=== PATIENT | female | born 2000 | race Caucasian/White ===

== ENCOUNTER 2020-09-18 08:29 | Outpatient (REF) | payer OTHER, SELFPAY ==
[2020-09-18 10:30] LABS: Baso%MD 0.7 %; Eos%MD 1.4 %; Hematocrit 43.4 % (37-47); Hemoglobin 14.6 g/dl (12.0-16.0); IG%MD 0.2 %; Lymph%MD 39.2 %; Mean Corpuscular HGB Conc 33.6 g/dl (31.0-35.0); Mean Corpuscular Hemoglobin 30.7 pg (27.0-33.0); Mean Corpuscular Volume 91.4 fL (80-98); Mean Platelet Volume 10.2 fL (9.4-12.3); Mono%MD 8.3 %; Neut%MD 50.2 %; Platelet Count 227 X10*3/uL (160-400); Red Blood Count 4.75 X10*6/uL (4.20-5.50); Red Cell Distribution Width 11.7 % (11.0-16.0); White Blood Count 4.2 X10*3/uL (4.8-10.8)
[2020-09-18 11:10] LABS: TSH reflex Free T4 1.42 mIU/mL (0.32-4.0)
[2020-09-18 11:21] LABS: Erythrocyte Sedimentation Rate 2 MM/HR (0-20)
[2020-09-18 14:18] LABS: Eosinophils Percent Manual 1 % (0-4); Lymphocytes Absolute Manual 1.6 X10*3/uL (0.6-4.8); Lymphocytes Percent Manual 38 % (20-40); Monocytes Absolute Manual 0.3 X10*3/uL (0.0-1.2); Monocytes Percent Manual 6 % (2-11); Neutrophils Percent Manual 55 % (45-73)
[2020-09-18 14:20] LABS: Platelet Estimate NORMAL (NORMAL); Platelet Morphology Comment NORMAL; RBC Morphology NORMAL
[2020-09-18 14:27] LABS: Band Neutrophils Percent 0 % (3-5); Neutrophils Absolute Manual 2.3 X10*3/uL (2.2-7.9)
[2020-09-22 13:11] LABS: Vitamin D 25-OH, D2 <4 ng/mL; Vitamin D 25-OH, D3 38 ng/mL; Vitamin D 25-OH, Total 38 ng/mL (30-100)
== END 2020-09-18 08:30 | disposition home or self-care (01) ==
LOC: HO.10HDLR 08:29
PROVIDERS: Visit Provider Pediatrics
DX: R89.9 Unspecified abnormal finding in specimens from other organs, systems and tissues (principal)
CPT/HCPCS: 36415; 82306; 84443; 85007; 85027; 85652

== ENCOUNTER 2020-11-10 13:05 | Emergency (ER) | payer OTHER, SELFPAY ==
[2020-11-10 13:18] VITALS: BP 102/72; PULSE 69; RESP 16; TEMP 36.6; O2SAT 100; BMI 27.9
--- NOTE | 2020-11-10 13:58 | CT_ITS ---
EXAMINATION: CT HEAD WITHOUT CONTRAST CLINICAL INFORMATION: Syncope. Hit head. COMPARISON: None TECHNIQUE: Contiguous axial imaging was performed from the skull base to vertex without intravenous administration of contrast. This CT examination was performed using dose optimization techniques as appropriate, variously including the following: *Automated exposure control *Adjustment of mA and/or kV according to patient size (this includes techniques or standardized protocols for targeted exams where dose is matched to indication/reason for exam; i.e. extremities or head) *Use of iterative reconstruction technique DLP: 665.06 mGy-cm FINDINGS: There is no evidence of acute intracranial hemorrhage or territorial infarction. No abnormal mass effect or midline shift is seen. Nguyen to white matter differentiation is well preserved. No extra-axial fluid collections are identified. The ventricles are normal in size. There is no abnormal attenuation within the brain parenchyma. The osseous structures and soft tissues are normal. The mastoid air cells and visualized portions of the paranasal sinuses are well aerated. CT/CT head/brain wo con IMPRESSION: No acute intracranial pathology.
--- NOTE | 2020-11-10 14:19 | XR_ITS ---
EXAMINATION: XR SHOULDER, RIGHT CLINICAL INFORMATION: Fall COMPARISON: None TECHNIQUE: AP external rotation, Grashey, scapular Y, and axillary views of the right shoulder. FINDINGS: The bones and soft tissues are normal. No fracture. Glenohumeral and acromioclavicular alignment is anatomic with normal joint space. No abnormal soft tissue calcifications. XR/XR shoulder RT min 2V IMPRESSION: Unremarkable right shoulder exam
[2020-11-10 14:56] VITALS: BP 121/62; PULSE 70; RESP 18; O2SAT 98
[2020-11-10 15:10] LABS: MANUAL DIFF FLAG NO
[2020-11-10 15:11] LABS: Basophils Percent Auto 0.3 % (0-2); Eosinophils Absolute Auto 0.1 X10*3/uL (0.0-0.4); Hematocrit 41.9 % (37-47); Hemoglobin 14.3 g/dl (12.0-16.0); Imm Gran Abs Auto 0.02 X10*3/uL (0.00-0.03); Imm Gran Pct Auto 0.3 % (0.0-0.4); Lymphocytes Absolute Auto 1.4 X10*3/uL (1.2-4.9); Mean Corpuscular HGB Conc 34.1 g/dl (31.0-35.0); Mean Corpuscular Hemoglobin 31.1 pg (27.0-33.0); Mean Corpuscular Volume 91.1 fL (80-98); Mean Platelet Volume 9.6 fL (9.4-12.3); Monocytes Absolute Auto 0.4 X10*3/uL (0.1-1.2); Monocytes Percent Auto 6.4 % (2-11); Neutrophils Absolute Auto 4.4 X10*3/uL (2.0-8.3); Platelet Count 216 X10*3/uL (160-400); Red Cell Distribution Width 11.8 % (11.0-16.0); White Blood Count 6.2 X10*3/uL (4.8-10.8)
--- NOTE | 2020-11-10 15:21 | ED_ITS ---
HPI - Syncope General Chief Complaint: Syncope Stated Complaint: fall, head inj Time Seen by Provider: 11/10/20 13:58 Source: patient Mode of arrival: ambulatory Limitations: no limitations History of Present Illness HPI narrative: Patient is a 20-year-old female with no significant past medical history who syncopized while at work this morning. She states she did not eat anything for breakfast, she did not drink anything either. She admits to possibly inhaling aerosolized I so floor rain while they were intubating a dog. She started feeling dizzy went to go lower herself to the ground then fell backwards hitting her head on an exam table, she did lose consciousness for a few seconds. She also hit her right shoulder and states it is still painful. She denies nausea or vomiting but does admit to a headache and some dizziness. She is not on any blood thinners. Related Data Previous Rx's Medication Instructions Recorded ibuprofen 600 mg PO Q8H PRN #30 tab 11/10/20 Allergies Allergy/AdvReac Type Severity Reaction Status Date / Time No Known Allergies Allergy Verified 11/10/20 13:58 Review of Systems Review of Systems: Yes all other systems are reviewed and are negative Neurologic: Denies Abnormal speech present [facility] Past Medical History Medical History No known health problems Social History Social History Advance Directives: No Advance Directives Information Provided: No Physical Exam Vital Signs: Vital Signs: Last Vital Signs Temp 98.5 F 11/10/20 16:17 Pulse 64 11/10/20 16:17 Resp 18 11/10/20 16:17 BP 105/58 L 11/10/20 16:17 Pulse Ox 99 11/10/20 16:17 Body Mass Index 27.9 Const: General: cooperative, healthy appearing, comfortable, no acute distress and well developed Orientation/consciousness: patient oriented x3 HENMT: Head: Yes normal to inspection, Yes No palpable skull fracture present, Yes normocephalic and Yes atraumatic Ears: hearing grossly normal bilaterally, external ears normal and TM's normal bilaterally General nose exam: Normal external nose present Face and sinus: Yes normal facial exam Eyes: General: appearance normal, both eyes and all related structures Visual Ramires: normal visual ramires by confrontation Periorbital: periorbital findings normal Eyelids: Yes eyelids normal Conjunctivae: conjunctivae normal Sclerae: sclerae normal Corneas: corneas normal Pupils: Equal, round and reactive pupils present EOM: EOMs intact bilaterally Neck: Neck: Yes normal visual inspection, Yes full ROM, Yes trachea midline and Yes supple Chest: Chest palpation & inspection: normal inspection of the chest Neuro: General: patient oriented x3 Cranial nerves: Yes CN's II-XII intact bilaterally and Yes Equal, round and reactive pupils present Cognition (Neuro): normal cognition Speech: No Abnormal speech present Gait exam (Neuro): Normal gait present Motor exam (neuro): 5/5 motor strength present throughout Extrem: General: Yes normal to inspection Right upper extremity: normal to inspection and full ROM (with slight pain) Course Course Course Narrative: 20-year-old female with no significant past medical history syncopized while at work, during a procedure where she may have inhaled some aerosolized isoflurane which is used to sedate a dog during intubation. She also did not eat or drink anything prior to the event which occurred around noon time today. She did hit her head and did lose consciousness for a few minutes, will do a head CT. She also injured her right shoulder during the fall, will get a shoulder x-ray. Patient has Nexplanon but radiology is requesting a test prior to CT scan, will do this MARION. Will also get basic labs to check electrolytes and for infection. MDM - Syncope Differential Diagnosis Differential diagnosis: Likely syncope due to orthostatic hypotension, vasovagal syncope, complete atrioventricular block, subarachnoid hemorrhage and dehydration Lab Data Result diagrams: 11/10/20 15:03 11/10/20 15:03 Labs: Lab Results 11/10/20 11/10/20 11/10/20 Range/Units 15:03 15:03 15:26 WBC 6.2 (4.8-10.8) X10*3/uL RBC 4.60 (4.20-5.50) X10*6/uL Hgb 14.3 (12.0-16.0) g/dl Hct 41.9 (37-47) % MCV 91.1 (80-98) fL MCH 31.1 (27.0-33.0) pg MCHC 34.1 (31.0-35.0) g/dl RDW 11.8 (11.0-16.0) % Plt Count 216 (160-400) X10*3/uL MPV 9.6 (9.4-12.3) fL Immature Gran % (Auto) 0.3 (0.0-0.4) % Neut % (Auto) 70.0 (45-73) % Lymph % (Auto) 22.0 (20-40) % [place] % (Auto) 6.4 (2-11) % Eos % (Auto) 1.0 (0-4) % Baso % (Auto) 0.3 (0-2) % Lymph # (Auto) 1.4 (1.2-4.9) X10*3/uL [place] # (Auto) 0.4 (0.1-1.2) X10*3/uL Eos # (Auto) 0.1 (0.0-0.4) X10*3/uL Baso # (Auto) 0.0 (0.0-0.2) X10*3/uL Abs Immat Gran (auto) 0.02 (0.00-0.03) X10*3/uL Absolute Neuts (auto) 4.4 (2.0-8.3) X10*3/uL Absolute Nucleated RBC 0.000 (0.0-0.012) X10*3/uL Nucleated RBC % (auto) 0.0 (0.0-0.2) /100WBC Sodium 138 (135-145) mmol/L Potassium 4.1 (3.3-5.1) mmol/l Chloride 105 (96-108) mmol/L Carbon Dioxide 25 (22-29) mmol/L Anion Gap 12 (12-20) BUN 15 (9-16) mg/dL Creatinine 0.87 (0.5-1.4) mg/dL Estim Creat Clear Calc 86.7 Estimated GFR > 60 Random Glucose 113 (60-115) mg/dL Calcium 8.9 (8.4-10.2) mg/dL Urine Test NEGATIVE (NEGATIVE) Imaging Data right shoulder xray: Attestation: I personally reviewed and interpreted this imaging study as follows: My impression: normal Radiologist's impression: [address] [address] XRay Report Signed Patient: Wilfrido Shane#: [id number] : 2000Acct:[id number] Age/Sex: 20 / FADM Date: 11/10/20 Loc: HO.ED Attending Dr: Ordering Physician: ECHO BRITTON Date of Service: 11/10/20 Procedure(s): XR shoulder RT min 2V Accession Number(s): [id number] cc: ECHO BRITTON~ EXAMINATION: XR SHOULDER, RIGHT CLINICAL INFORMATION: Fall COMPARISON: None TECHNIQUE: AP external rotation, Grashey, scapular Y, and axillary views of the right shoulder. FINDINGS: The bones and soft tissues are normal. No fracture. Glenohumeral and acromioclavicular alignment is anatomic with normal joint space. No abnormal soft tissue calcifications. XR/XR shoulder RT min 2V IMPRESSION: Unremarkable right shoulder exam Dictated By:CHIQUIS PEREZ MD Signed By:<Electronically signed by CHIQUIS PEREZ MD in OV>11/10/[address] scan - head: Attestation: I personally reviewed and interpreted this imaging study as follows: My impression: No acute intracranial pathology Radiologist's impression: [address] [address] [address] Scan Report Signed Patient: Wilfrido Shane#: [id number] : 2000Acct:[id number] Age/Sex: 20 FADM Date: 11/10/20 Loc: HO.ED Attending Dr: Ordering Physician: ECHO BRITTON Date of Service: 11/10/20 Procedure(s): CT head/brain wo con Accession Number(s): [id number] cc: ECHO BRITTON~ EXAMINATION: CT HEAD WITHOUT CONTRAST CLINICAL INFORMATION: Syncope. Hit head. COMPARISON: None TECHNIQUE: Contiguous axial imaging was performed from the skull base to vertex without intravenous administration of contrast. This CT examination was performed using dose optimization techniques as appropriate, variously including the following: *Automated exposure control *Adjustment of mA and/or kV according to patient size (this includes techniques or standardized protocols for targeted exams where dose is matched to indication/reason for exam; i.e. extremities or head) *Use of iterative reconstruction technique DLP: 665.06 mGy-cm FINDINGS: There is no evidence of acute intracranial hemorrhage or territorial infarction. No abnormal mass effect or midline shift is seen. Nguyen to white matter differentiation is well preserved. No extra-axial fluid collections are identified. The ventricles are normal in size. There is no abnormal attenuation within the brain parenchyma. The osseous structures and soft tissues are normal. The mastoid air cells and visualized portions of the paranasal sinuses are well aerated. CT/CT head/brain wo con IMPRESSION: No acute intracranial pathology. Dictated By:PAUL KELLER MD Signed By:<Electronically signed by PAUL KELLER MD in OV>11/10/20 6300 Discharge Plan Discharge Clinical Impression: Acute pain of right shoulder due to trauma, Head injury with loss of cons ciousness Patient Disposition: Home, Self-Care Instructions: Concussion (ED), Head Injury (ED) Prescriptions: New ibuprofen 600 mg tablet 600 mg PO Q8H PRN (Reason: pain) Qty: 30 RF: 0
[2020-11-10 15:33] LABS: Anion Gap 12 (12-20); Blood Urea Nitrogen 15 mg/dL (9-16); Calcium 8.9 mg/dL (8.4-10.2); Carbon Dioxide 25 mmol/L (22-29); Chloride 105 mmol/L (96-108); Creatinine Clr Calc Pharmacy 86.7; Estimated Glomerular Filt Rate > 60; Glucose Random 113 mg/dL (60-115); Potassium 4.1 mmol/l (3.3-5.1); Sodium 138 mmol/L (135-145)
[2020-11-10 15:50] LABS: UPreg QC Valid YES; Urine Pregnancy NEGATIVE (NEGATIVE)
[2020-11-10 16:17] VITALS: BP 105/58; PULSE 64; RESP 18; TEMP 36.9; O2SAT 99
[2020-11-10] MEDS: Ibuprofen 600 MG TABLET PO (16:33)
--- NOTE | 2020-11-13 | ECG_ITS ---
Test Reason : SYNCOPE Blood Pressure : / mmHG Vent. Rate : 060 BPM Atrial Rate : 060 BPM P-R Int : 106 ms QRS Dur : 096 ms QT Int : 414 ms P-R-T Axes : 041 025 011 degrees QTc Int : 414 ms Sinus rhythm with short ME Otherwise normal ECG No previous ECGs available Referred By: Magan Ames Electronically Signed By:CHRISTY BARRAZA
== END 2020-11-10 16:39 | disposition home or self-care (01) ==
PROVIDERS: Physician Assistant; Emergency Provider Emergency Medicine Emergency Medical Services; PCP Family Medicine
DX: S06.0X1A Concussion with loss of consciousness of 30 minutes or less, initial encounter (principal); X58.XXXA Exposure to other specified factors, initial encounter; G89.11 Acute pain due to trauma; M25.511 Pain in right shoulder; Y93.K9 Activity, other involving animal care; Y92.238 Other place in hospital as the place of occurrence of the external cause; Y99.0 Civilian activity done for income or pay
CPT/HCPCS: 36415; 70450; 73030; 80048; 81025; 85025; 93005; 99284

== ENCOUNTER 2021-03-05 09:19 | Outpatient (REF) | payer OTHER, SELFPAY ==
[2021-03-05 10:12] LABS: MANUAL DIFF FLAG NO
[2021-03-05 10:20] LABS: Basophils Percent Auto 0.5 % (0-2); Eosinophils Absolute Auto 0.1 X10*3/uL (0.0-0.4); Hematocrit 42.7 % (37-47); Hemoglobin 13.9 g/dl (12.0-16.0); Imm Gran Abs Auto 0.01 X10*3/uL (0.00-0.03); Imm Gran Pct Auto 0.2 % (0.0-0.4); Lymphocytes Absolute Auto 1.7 X10*3/uL (1.2-4.9); Lymphocytes Percent Auto 43.3 % (20-40); Mean Corpuscular HGB Conc 32.6 g/dl (31.0-35.0); Mean Corpuscular Hemoglobin 29.7 pg (27.0-33.0); Mean Corpuscular Volume 91.2 fL (80-98); Monocytes Absolute Auto 0.4 X10*3/uL (0.1-1.2); Monocytes Percent Auto 10.4 % (2-11); Neutrophils Absolute Auto 1.8 X10*3/uL (2.0-8.3); Neutrophils Percent Auto 43.6 % (45-73); Platelet Count 243 X10*3/uL (160-400); Red Blood Count 4.68 X10*6/uL (4.20-5.50)
[2021-03-05 10:21] LABS: Glucose Urine UA NEG (NEG); Leukocyte Esterase Urine 1+ (NEG); Nitrite Urine NEG (NEG); Urine Blood NEG (NEG); Urine Ketones NEG (NEG); Urine Protein NEG (NEG-TRACE)
[2021-03-05 10:23] LABS: Appearance Urine HAZY; Color Urine YELLOW
[2021-03-05 10:40] LABS: Alanine Aminotransferase 19 U/L (0-31); Albumin Level 4.2 g/dL (3.5-5.0); Alkaline Phosphatase 56 U/L (39-117); Anion Gap 13 (12-20); Aspartate Amino Transferase 17 U/L (5-31); Bilirubin Total 1.2 mg/dL (0.0-1.0); Blood Urea Nitrogen 20 mg/dL (9-16); C Reactive Protein 0.17 mg/dL (< or = 0.50); Calcium 9.2 mg/dL (8.4-10.2); Carbon Dioxide 26 mmol/L (22-29); Chloride 105 mmol/L (96-108); Estimated Glomerular Filt Rate > 60; Glucose Random 110 mg/dL (60-115); Potassium 4.2 mmol/L (3.3-5.1); Sodium 140 mmol/L (135-145); Total Protein 6.5 g/dL (6.5-8.0)
[2021-03-05 10:56] LABS: Bacteria Urine 1+ /LPF; Mucus Urine 1+ /LPF; RBC Urine 0 /HPF (0); Squamous Epithelial Cell Urine 3+ /LPF
[2021-03-05 10:59] LABS: Erythrocyte Sedimentation Rate 2 MM/HR (0-20)
== END 2021-03-05 09:20 | disposition home or self-care (01) ==
LOC: HO.10HDL 09:19
PROVIDERS: Visit Provider Family Medicine
DX: D69.2 Other nonthrombocytopenic purpura (principal)
CPT/HCPCS: 36415; 80053; 81001; 85025; 85652; 86140

== ENCOUNTER 2022-05-29 11:36 | Outpatient (REF) | payer OTHER, SELFPAY ==
[2022-05-29 13:50] LABS: MANUAL DIFF FLAG NO
[2022-05-29 13:55] LABS: Basophils Percent Auto 0.4 % (0-2); Eosinophils Absolute Auto 0.1 X10*3/uL (0.0-0.4); Eosinophils Percent Auto 1.4 % (0-4); Hematocrit 40.3 % (37.0-47.0); Hemoglobin 13.8 g/dl (12.0-16.0); Imm Gran Abs Auto 0.01 X10*3/uL (0.00-0.03); Imm Gran Pct Auto 0.2 % (0.0-0.4); Lymphocytes Absolute Auto 1.9 X10*3/uL (1.2-4.9); Lymphocytes Percent Auto 37.9 % (20-40); Mean Corpuscular HGB Conc 34.2 g/dl (31.0-35.0); Mean Corpuscular Hemoglobin 31.1 pg (27.0-33.0); Mean Corpuscular Volume 90.8 fL (80.0-98.0); Mean Platelet Volume 10.6 fL (9.4-12.3); Monocytes Absolute Auto 0.6 X10*3/uL (0.1-1.2); Monocytes Percent Auto 12.5 % (2-11); Neutrophils Absolute Auto 2.3 x10*3/uL (2.0-8.3); Neutrophils Percent Auto 47.6 % (45-73); Platelet Count 227 X10*3/uL (160-400); Red Blood Count 4.44 X10*6/uL (4.20-5.50); White Blood Count 4.9 X10*3/uL (4.8-10.8)
[2022-05-29 14:28] LABS: Thyroid Stimulating Hormone 2.03 uIU/mL (0.32-4.0)
[2022-05-29 18:07] LABS: CT PCR NOT DETECTED (Not Detect.); NG PCR NOT DETECTED (Not Detect.)
== END 2022-05-29 11:37 | disposition home or self-care (01) ==
LOC: HO.HMGCLDS 11:36
PROVIDERS: Visit Provider Family Medicine
DX: Z11.3 Encounter for screening for infections with a predominantly sexual mode of transmission (principal); N92.1 Excessive and frequent menstruation with irregular cycle
CPT/HCPCS: 84443; 85025; 87491; 87591

== ENCOUNTER 2022-10-17 15:47 | Emergency (ER) | payer OTHER, SELFPAY ==
[2022-10-17 16:08] VITALS: BP 131/74; PULSE 92; RESP 18; TEMP 36.9; O2SAT 98; BMI 29.2
--- NOTE | 2022-10-17 16:09 | ED_ITS ---
Potassium 3.9 (3.3-5.1) mmol/L Chloride 102 (96-108) mmol/L Carbon Dioxide 27 (22-29) mmol/L Anion Gap 10 L (12-20) BUN 12 (9-16) mg/dL Creatinine 0.82 (0.5-1.4) mg/dL Estim Creat Clear Calc 96.5 Estimated GFR > 60 Random Glucose 87 (60-115) mg/dL Lactic Acid (0.5-2.0) mmol/L Calcium 9.5 (8.4-10.2) mg/dL Total Bilirubin 1.1 H (0.0-1.0) mg/dL AST 22 (5-31) U/L ALT 37 H (0-31) U/L Alkaline Phosphatase 53 (39-117) U/L C-Reactive Protein 4.33 H (< or = 0.50) mg/dL Total Protein 7.1 (6.5-8.0) g/dL Albumin 4.6 (3.5-5.0) g/dL COVID-19 ([facility]IMBO) (Negative) COVID-19 Clin Com 10/17/22 10/17/22 Range/Units 18:26 18:26 WBC (4.8-10.8) X10*3/uL RBC (4.20-5.50) X10*6/uL Hgb (12.0-16.0) g/dl Hct (37.0-47.0) % MCV (80.0-98.0) fL MCH (27.0-33.0) pg MCHC (31.0-35.0) g/dl RDW (11.0-16.0) % Plt Count (160-400) X10*3/uL MPV (9.4-12.3) fL Immature Gran % (Auto) (0.0-0.4) % Neut % (Auto) (45-73) % Lymph % (Auto) (20-40) % [place] % (Auto) (2-11) % Eos % (Auto) (0-4) % Baso % (Auto) (0-2) % Lymph # (Auto) (1.2-4.9) X10*3/uL [place] # (Auto) (0.1-1.2) X10*3/uL Eos # (Auto) (0.0-0.4) X10*3/uL Baso # (Auto) (0.0-0.2) X10*3/uL Abs Immat Gran (auto) (0.00-0.03) X10*3/uL Absolute Neuts (auto) (2.0-8.3) x10*3/uL Absolute Nucleated RBC (0.0-0.012) X10*3/uL Nucleated RBC % (auto) (0.0-0.2) /100WBC ESR (0-20) MM/HR Sodium (135-145) mmol/L Potassium (3.3-5.1) mmol/L Chloride (96-108) mmol/L Carbon Dioxide (22-29) mmol/L Anion Gap (12-20) BUN (9-16) mg/dL Creatinine (0.5-1.4) mg/dL Estim Creat Clear Calc Estimated GFR Random Glucose (60-115) mg/dL Lactic Acid 0.9 (0.5-2.0) mmol/L Calcium (8.4-10.2) mg/dL Total Bilirubin (0.0-1.0) mg/dL AST (5-31) U/L ALT (0-31) U/L Alkaline Phosphatase (39-117) U/L C-Reactive Protein (< or = 0.50) mg/dL Total Protein (6.5-8.0) g/dL Albumin (3.5-5.0) g/dL COVID-19 ([facility]IMBO) Negative (Negative) COVID-19 Clin Com See Note <JONATHAN Turner - Last Filed: 10/17/22 19:21> Lab Results 10/17/22 10/17/22 10/17/22 Range/Units 18:26 18:26 18:26 WBC 8.3 (4.8-10.8) X10*3/uL RBC 4.65 (4.20-5.50) X10*6/uL Hgb 14.2 (12.0-16.0) g/dl Hct 40.8 (37.0-47.0) % MCV 87.7 (80.0-98.0) fL MCH 30.5 (27.0-33.0) pg MCHC 34.8 (31.0-35.0) g/dl RDW 11.8 (11.0-16.0) % Plt Count 202 (160-400) X10*3/uL MPV 10.0 (9.4-12.3) fL Immature Gran % (Auto) 0.2 (0.0-0.4) % Neut % (Auto) 64.9 (45-73) % Lymph % (Auto) 22.5 (20-40) % [place] % (Auto) 10.9 (2-11) % Eos % (Auto) 1.1 (0-4) % Baso % (Auto) 0.4 (0-2) % Lymph # (Auto) 1.9 (1.2-4.9) X10*3/uL [place] # (Auto) 0.9 (0.1-1.2) X10*3/uL Eos # (Auto) 0.1 (0.0-0.4) X10*3/uL Baso # (Auto) 0.0 (0.0-0.2) X10*3/uL Abs Immat Gran (auto) 0.02 (0.00-0.03) X10*3/uL Absolute Neuts (auto) 5.4 (2.0-8.3) x10*3/uL Absolute Nucleated RBC 0.000 (0.0-0.012) X10*3/uL Nucleated RBC % (auto) 0.0 (0.0-0.2) /100WBC ESR 5 (0-20) MM/HR Sodium 135 (135-145) mmol/L Potassium 3.9 (3.3-5.1) mmol/L Chloride 102 (96-108) mmol/L Carbon Dioxide 27 (22-29) mmol/L Anion Gap 10 L (12-20) BUN 12 (9-16) mg/dL Creatinine 0.82 (0.5-1.4) mg/dL Estim Creat Clear Calc 96.5 Estimated GFR > 60 Random Glucose 87 (60-115) mg/dL Lactic Acid (0.5-2.0) mmol/L Calcium 9.5 (8.4-10.2) mg/dL Total Bilirubin 1.1 H (0.0-1.0) mg/dL AST 22 (5-31) U/L ALT 37 H (0-31) U/L Alkaline Phosphatase 53 (39-117) U/L C-Reactive Protein 4.33 H (< or = 0.50) mg/dL Total Protein 7.1 (6.5-8.0) g/dL Albumin 4.6 (3.5-5.0) g/dL COVID-19 ([facility]IMBO) (Negative) COVID-19 Clin Com 10/17/22 10/17/22 Range/Units 18:26 18:26 WBC (4.8-10.8) X10*3/uL RBC (4.20-5.50) X10*6/uL Hgb (12.0-16.0) g/dl Hct (37.0-47.0) % MCV (80.0-98.0) fL MCH (27.0-33.0) pg MCHC (31.0-35.0) g/dl RDW (11.0-16.0) % Plt Count (160-400) X10*3/uL MPV (9.4-12.3) fL Immature Gran % (Auto) (0.0-0.4) % Neut % (Auto) (45-73) % Lymph % (Auto) (20-40) % [place] % (Auto) (2-11) % Eos % (Auto) (0-4) % Baso % (Auto) (0-2) % Lymph # (Auto) (1.2-4.9) X10*3/uL [place] # (Auto) (0.1-1.2) X10*3/uL Eos # (Auto) (0.0-0.4) X10*3/uL Baso # (Auto) (0.0-0.2) X10*3/uL Abs Immat Gran (auto) (0.00-0.03) X10*3/uL Absolute Neuts (auto) (2.0-8.3) x10*3/uL Absolute Nucleated RBC (0.0-0.012) X10*3/uL Nucleated RBC % (auto) (0.0-0.2) /100WBC ESR (0-20) MM/HR Sodium (135-145) mmol/L Potassium (3.3-5.1) mmol/L Chloride (96-108) mmol/L Carbon Dioxide (22-29) mmol/L Anion Gap (12-20) BUN (9-16) mg/dL Creatinine (0.5-1.4) mg/dL Estim Creat Clear Calc Estimated GFR Random Glucose (60-115) mg/dL Lactic Acid 0.9 (0.5-2.0) mmol/L Calcium (8.4-10.2) mg/dL Total Bilirubin (0.0-1.0) mg/dL AST (5-31) U/L ALT (0-31) U/L Alkaline Phosphatase (39-117) U/L C-Reactive Protein (< or = 0.50) mg/dL Total Protein (6.5-8.0) g/dL Albumin (3.5-5.0) g/dL COVID-19 ([facility]IMBO) Negative (Negative) COVID-19 Clin Com See Note <JONATHAN Tirado - Last Filed: 10/17/22 19:21> Discharge Plan Discharge Clinical Impression: Dog bite, Cellulitis <JONATHAN Turner - Last Filed: 10/17/22 19:21> Patient Disposition: Home, Self-Care <JONATHAN Turner - Last Filed: 10/17/22 19:21> Instructions: Animal Bite (ED), Cellulitis (ED), Warm Compress or Soak (ED) <JONATHAN Turner - Last Filed: 10/17/22 19:21> Additional Instructions: Take your medications as prescribed. If you were prescribed antibiotics today, it is important that you take your medication to their entirety, do not skip any doses, do not finish them early. Follow-up with your primary care provider this week. If you note that pain persists or swelling worsens you need to follow-up with orthopedics however for this happens quickly and suddenly please come to the emergency department for further evaluation and treatment Return to the emergency department with new or worsening symptoms. Such as fevers, chills, chest pain, shortness of breath, nausea, vomiting, dizziness, headache, vision changes, lethargy, inability to move fingers, worsening wrist pain or swelling, inability to move wrist, worsening discharge or swelling. Apply warm compresses to the area. In case of emergency call 911 Please continue to take antibiotics as prescribed. <JONATHAN Turner - Last Filed: 10/17/22 19:21> Prescriptions: No Action amoxicillin-pot clavulanate 875-125 mg tablet 1 tab PO BID <JONATHAN Turner - Last Filed: 10/17/22 19:21> Referrals: [facility] [Provider Group] - 1 week Kathi Wadsworth MD [Primary Care Provider] - 2 days <JONATHAN Turner - Last Filed: 10/17/22 19:21> Stand Alone Forms: Work/School Release <JONATHAN Tunrer - Last Filed: 10/17/22 19:21> HPI - General Adult General Chief complaint: Animal Bite <JONATHAN Turner - Last Filed: 10/17/22 19:21> Stated complaint: animal bite yesterday around 830 <JONATHAN Turner - Last Filed: 10/17/22 19:21> Time Seen by Provider: 10/17/22 17:57 <JONATHAN Turner - Last Filed: 10/17/22 19:21> Source: patient <JONATHAN Turner - Last Filed: 10/17/22 19:21> Mode of arrival: ambulatory <JONATHAN Turner - Last Filed: 10/17/22 19:21> Limitations: no limitations <JONATHAN Turner - Last Filed: 10/17/22 19:21> History of Present Illness HPI narrative: 22-year-old female no significant medical history, right-hand dominant presenting to the emergency department with erythema, warmth and swelling to left hand/wrist status post getting bit by a dog between 1st and 2nd fingers web space yesterday morning.? Immediately following the accident washed the area with chlorhexidine wipes.? Patient reports that yesterday after this happened she went to Urgent Care was prescribed Augmentin, has currently taken 3 doses. She tells me that she scout a pedro on her skin and it is going beyond the borders.? Patient tells me she is having pain with movement of left wrist, and she thinks the infection is getting worse.? She reports her left hand and wrist feel as though they are pulsing.? Patient tells me that she is up-to-date on a tetanus shot last 1 was in 2019.? Dog was fully vaccinated.? 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 Patient denies fevers, chills, numbness, tingling. <JONATHAN Tirado - Last Filed: 10/17/22 19:21> Related Data Home medications: Home Medications Medication Instructions Recorded Confirmed amoxicillin 875 mg-potassium 1 tab PO BID 10/17/22 10/17/22 clavulanate 125 mg tablet <JONATHAN Turner - Last Filed: 10/17/22 19:21> Allergies/adverse reactions: Allergies Allergy/AdvReac Type Severity Reaction Status Date / Time No Known Allergies Allergy Verified 11/10/20 13:58 <JONATHAN Turner - Last Filed: 10/17/22 19:21> Review of Systems Review of Systems: Constitutional : No Weight loss, No Fever, No Chills, No Fatigue, No Malaise ENT/Mouth : No sore throat, No Rhinorrhea Eyes: No Eye Pain, No Swelling, No Redness Cardiovascular : No Chest Pain, No SOB, No Dyspnea on Exertion, No Orthopnea, No Edema, No Palpitations Respiratory : No Cough, No Sputum, No Wheezing Gastrointestinal : No Nausea, No Vomiting, No Diarrhea, No Constipation, No abdominal Pain, No Hematochezia, No Melena Genitourinary : No Dysuria, No Urinary Frequency, No Hematuria, Musculoskeletal : + joint pain, No Myalgias, + Joint Swelling Skin : No Skin Lesions, No rash, + punture wound Neuro : No Weakness, No Numbness, No Dizziness, No Headache Psych : No Anxiety/Panic, No Depression All other systems reviewed and are negative <JONATHAN Tirado Last Filed: 10/17/22 19:21> Yes all other systems are reviewed and are negative <JONATHAN Tirado Last Filed: 10/17/22 19:21> [facility] Past Medical History Attestation statement: The following information was validated with the patient. <JONATHAN Tirado Last Filed: 10/17/22 19:21> Source: old records reviewed and nursing notes reviewed <JONATHAN Tirado Last Filed: 10/17/22 19:21> Medical History: Medical History No known health problems <JONATHAN Turner - Last Filed: 10/17/22 19:21> Social History Social History: Social History Advance Directives: No Advance Directives Information Provided: No <JONATHAN Turner - Last Filed: 10/17/22 19:21> Physical Exam ED Vital Signs: Vital Signs - 24 hr 10/17/22 16:08 Temperature 98.4 F Pulse Rate 92 Respiratory Rate 18 Blood Pressure 131/74 Pulse Oximetry 98 Oxygen Delivery Method Room Air BMI result Body Mass Index 29.2 <JONATHAN Turner - Last Filed: 10/17/22 19:21> Vital Signs - 24 hr 10/17/22 16:08 Temperature 98.4 F Pulse Rate 92 Respiratory Rate 18 Blood Pressure 131/74 Pulse Oximetry 98 Oxygen Delivery Method Room Air BMI result Body Mass Index 29.2 vss <JONATHAN Tirado - Last Filed: 10/17/22 19:21> Appearance: Alert.? Oriented X3.? No acute distress.? Head:? Normocephalic, atraumatic, no step-offs or deformities Eyes: Pupils equal, round and reactive to light. Neck: Normal inspection.? Neck supple.? CVS: Normal heart rate and rhythm.? Pulses normal.? Respiratory: No respiratory distress.? Breath sounds normal.? Abdomen: Soft and nontender.? Skin: Skin warm and dry.? Normal skin color.? Normal skin turgor.? Extremities:? 5/5 strength to bilateral upper and lower extremities Full ROM to b/l upper extremities/ wrist/ hand/fingers however painful ROM to left wrist. Pain with palpation of left wrist. Errythema and warmth overlying dorsal aspect of left hand and part of left wrist. Normal volar aspect of b/l wrists. Normal opposition/reposition. 2+ radial pulses equal and b/l. No wrist drop. Normal sensation. Puncture wound in webspace b/t 1st and 2nd finger Back:? No midline tenderness, no C-spine tenderness, full range of motion, no CVA tenderness bilaterally Neuro: Oriented X 3.? No motor deficit.? No sensory deficit. CN 2-12 intact <JONATHAN Tirado Last Filed: 10/17/22 19:21> Course Course Course Narrative: RME performed by Naomy Card PA-C. Patient is a 22 year old female presenting to the Emergency Department with a dog bite to the left hand. Patient was seen yesterday at urgent care and prescribed Augmentin, of which she has had 3 doses. Patient states that the swelling has gotten worse and is now outside of the marker line. CBC, CMP, ESR, CRP, Blood cultures, lactic, and med rec ordered. Patient placed back in the waiting room pending results and bed availability. <JONATHAN Turner Last Filed: 10/17/22 19:21> Reevaluation(s) Reevaluation #1: Patients labs unremarkable normal CBC, Chemistry. CRP 4.33 therefor low suspicion for septic joint, tenosynovitis. TT ortho NICK Dimas tells me since volar aspect of wrist unaffected and able to move fingers low supicion for tenosynovitis. <JONATHAN Tirado Last Filed: 10/17/22 19:21> Time: 19:02 <JONATHAN Tirado Last Filed: 10/17/22 19:21> Reevaluation #2: Discussed this case with my attending who tells me patient should? be DC home w/ instructions to continue her same atbx, he states 3 doses isnt enough to make a difference will outline cellulitic area.? Advised return with any new or worsening symptoms, educated on worrisome signs and symptoms and when to return.? Comfortable discharge home <JONATHAN Tirado Last Filed: 10/17/22 19:21> Time: 19:07 <JONATHAN Tirado Last Filed: 10/17/22 19:21> Medical Decision Making [facility] Narrative Medical decision making narrative: 182 22 year old female presents with erythema, swelling to left hand/wrist status post dog bite.? Presenting with worsening symptoms.? Was seen at urgent care yesterday. Physical examination significant for 5/5 strength to bilateral upper and lower extremities Full ROM to b/l upper extremities/ wrist/ hand/fingers however painful ROM to left wrist. Pain with palpation of left wrist. Errythema and warmth overlying dorsal aspect of left hand and part of left wrist.? Normal volar aspect of b/l wrists. Normal opposition/reposition.? 2+ radial pulses equal and b/l. No wrist drop. Normal sensation. Puncture wound in webspace b/t 1st and 2nd finger Concerns for cellulitis that is worsening despite antibiotic use.? Low suspicion for septic joint or tenosynovitis.? However will obtain ESR, CRP, blood cultures, lactic acid. Plan at this time is basic labs.? Will administer zosyn. <JONATHAN Tirado - Last Filed: 10/17/22 19:21> Medical Records Medical records reviewed: Yes I reviewed the patient's medical records. <JONATHAN Tirado - Last Filed: 10/17/22 19:21> Lab Data Lab results reviewed: Yes I reviewed the patient's lab results. <JONATHAN Tirado - Last Filed: 10/17/22 19:21> Result diagrams: : 10/17/22 18:26 10/17/22 18:26 <JONATHAN Turner - Last Filed: 10/17/22 19:21> Labs: Lab Results 10/17/22 10/17/22 10/17/22 Range/Units 18:26 18:26 18:26 WBC 8.3 (4.8-10.8) X10*3/uL RBC 4.65 (4.20-5.50) X10*6/uL Hgb 14.2 (12.0-16.0) g/dl Hct 40.8 (37.0-47.0) % MCV 87.7 (80.0-98.0) fL MCH 30.5 (27.0-33.0) pg MCHC 34.8 (31.0-35.0) g/dl RDW 11.8 (11.0-16.0) % Plt Count 202 (160-400) X10*3/uL MPV 10.0 (9.4-12.3) fL Immature Gran % (Auto) 0.2 (0.0-0.4) % Neut % (Auto) 64.9 (45-73) % Lymph % (Auto) 22.5 (20-40) % [place] % (Auto) 10.9 (2-11) % Eos % (Auto) 1.1 (0-4) % Baso % (Auto) 0.4 (0-2) % Lymph # (Auto) 1.9 (1.2-4.9) X10*3/uL [place] # (Auto) 0.9 (0.1-1.2) X10*3/uL Eos # (Auto) 0.1 (0.0-0.4) X10*3/uL Baso # (Auto) 0.0 (0.0-0.2) X10*3/uL Abs Immat Gran (auto) 0.02 (0.00-0.03) X10*3/uL Absolute Neuts (auto) 5.4 (2.0-8.3) x10*3/uL Absolute Nucleated RBC 0.000 (0.0-0.012) X10*3/uL Nucleated RBC % (auto) 0.0 (0.0-0.2) /100WBC ESR 5 (0-20) MM/HR Sodium 135 (135-145) mmol/L
--- NOTE | 2022-10-17 16:32 | PHA.MEDREC ---
Pharmacy Consult ? Medication Reconciliation Pharmacy has completed the medication reconciliation.
[2022-10-17 18:34] LABS: MANUAL DIFF FLAG NO
[2022-10-17 18:38] LABS: Basophils Percent Auto 0.4 % (0-2); Eosinophils Absolute Auto 0.1 X10*3/uL (0.0-0.4); Eosinophils Percent Auto 1.1 % (0-4); Hematocrit 40.8 % (37.0-47.0); Hemoglobin 14.2 g/dl (12.0-16.0); Imm Gran Abs Auto 0.02 X10*3/uL (0.00-0.03); Imm Gran Pct Auto 0.2 % (0.0-0.4); Lymphocytes Absolute Auto 1.9 X10*3/uL (1.2-4.9); Lymphocytes Percent Auto 22.5 % (20-40); Mean Corpuscular HGB Conc 34.8 g/dl (31.0-35.0); Mean Corpuscular Hemoglobin 30.5 pg (27.0-33.0); Mean Corpuscular Volume 87.7 fL (80.0-98.0); Monocytes Absolute Auto 0.9 X10*3/uL (0.1-1.2); Monocytes Percent Auto 10.9 % (2-11); Neutrophils Absolute Auto 5.4 x10*3/uL (2.0-8.3); Neutrophils Percent Auto 64.9 % (45-73); Platelet Count 202 X10*3/uL (160-400); Red Blood Count 4.65 X10*6/uL (4.20-5.50); Red Cell Distribution Width 11.8 % (11.0-16.0); White Blood Count 8.3 X10*3/uL (4.8-10.8)
--- NOTE | 2022-10-17 18:38 | ED_ITS ---
HPI - Animal Bite General Chief Complaint: Animal Bite Stated Complaint: animal bite yesterday around 830 Time Seen by Provider: 10/17/22 17:57 Source: patient Mode of arrival: ambulatory Limitations: no limitations History of Present Illness HPI narrative: 22-year-old female no significant medical history, right-hand dominant presenting to the emergency department with erythema, warmth and swelling to left hand/wrist status post getting bit by a dog between 1st and 2nd fingers web space yesterday morning. Immediately following the accident washed the area with chlorhexidine wipes. Patient reports that yesterday after this happened she went to Urgent Care was prescribed Augmentin, has currently taken 3 doses. She tells me that she scout a pedro on her skin and it is going beyond the borders. Patient tells me she is having pain with movement of left wrist, and she thinks the infection is getting worse. She reports her left hand and wrist feel as though they are pulsing. Patient tells me that she is up-to-date on a tetanus shot last 1 was in 2019. Dog was fully vaccinated. 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 Patient denies fevers, chills, numbness, tingling. Related Data Home Medications Medication Instructions Recorded Confirmed amoxicillin 875 mg-potassium 1 tab PO BID 10/17/22 10/17/22 clavulanate 125 mg tablet Allergies Allergy/AdvReac Type Severity Reaction Status Date / Time No Known Allergies Allergy Verified 11/10/20 13:58 Review of Systems Review of Systems: Constitutional : No Weight loss, No Fever, No Chills, No Fatigue, No Malaise ENT/Mouth : No sore throat, No Rhinorrhea Eyes: No Eye Pain, No Swelling, No Redness Cardiovascular : No Chest Pain, No SOB, No Dyspnea on Exertion, No Orthopnea, No Edema, No Palpitations Respiratory : No Cough, No Sputum, No Wheezing Gastrointestinal : No Nausea, No Vomiting, No Diarrhea, No Constipation, No abdominal Pain, No Hematochezia, No Melena Genitourinary : No Dysuria, No Urinary Frequency, No Hematuria, Musculoskeletal : + joint pain, No Myalgias, + Joint Swelling Skin : No Skin Lesions, No rash, + punture wound Neuro : No Weakness, No Numbness, No Dizziness, No Headache Psych : No Anxiety/Panic, No Depression All other systems reviewed and are negative Yes all other systems are reviewed and are negative [facility] Past Medical History Attestation statement: The following information was validated with the patient. Source: old records reviewed and nursing notes reviewed Medical History No known health problems Social History Social History Advance Directives: No Advance Directives Information Provided: No Physical Exam ED Vital Signs: Vital Signs - 24 hr 10/17/22 16:08 Temperature 98.4 F Pulse Rate 92 Respiratory Rate 18 Blood Pressure 131/74 Pulse Oximetry 98 Oxygen Delivery Method Room Air BMI result Body Mass Index 29.2 vss Appearance: Alert.? Oriented X3.? No acute distress.? Head: Normocephalic, atraumatic, no step-offs or deformities Eyes: Pupils equal, round and reactive to light. Neck: Normal inspection.? Neck supple.? CVS: Normal heart rate and rhythm.? Pulses normal.? Respiratory: No respiratory distress.? Breath sounds normal.? Abdomen: Soft and nontender.? Skin: Skin warm and dry.? Normal skin color.? Normal skin turgor.? Extremities: 5/5 strength to bilateral upper and lower extremities Full ROM to b/l upper extremities/ wrist/ hand/fingers however painful ROM to left wrist. Pain with palpation of left wrist. Errythema and warmth overlying dorsal aspect of left hand and part of left wrist. Normal volar aspect of b/l wrists. Normal opposition/reposition. 2+ radial pulses equal and b/l. No wrist drop. Normal sensation. Puncture wound in webspace b/t 1st and 2nd finger Back: No midline tenderness, no C-spine tenderness, full range of motion, no CVA tenderness bilaterally Neuro: Oriented X 3.? No motor deficit.? No sensory deficit. CN 2-12 intact Course Reevaluation(s) Reevaluation #1: Patients labs unremarkable normal CBC, Chemistry. CRP 4.33 therefor low suspicion for septic joint, tenosynovitis. TT ortho NICK Dimas tells me since volar aspect of wrist unaffected and able to move fingers low supicion for tenosynovitis. Time: 19:02 Reevaluation #2: Discussed this case with my attending who tells me patient should be DC home w/ instructions to continue her same atbx, he states 3 doses isnt enough to make a difference will outline cellulitic area. Advised return with any new or worsening symptoms, educated on worrisome signs and symptoms and when to return. Comfortable discharge home Time: 19:07 MDM - Animal Bite MDM Narrative Medical decision making narrative: 1825 22 year old female presents with erythema, swelling to left hand/wrist status post dog bite. Presenting with worsening symptoms. Was seen at urgent care yesterday. Physical examination significant for 5/5 strength to bilateral upper and lower extremities Full ROM to b/l upper extremities/ wrist/ hand/fingers however painful ROM to left wrist. Pain with palpation of left wrist. Errythema and warmth overlying dorsal aspect of left hand and part of left wrist. Normal v olar aspect of b/l wrists. Normal opposition/reposition. 2+ radial pulses equal and b/l. No wrist drop. Normal sensation. Puncture wound in webspace b/t 1st and 2nd finger Concerns for cellulitis that is worsening despite antibiotic use. Low suspicion for septic joint or tenosynovitis. However will obtain ESR, CRP, blood cultures, lactic acid. Plan at this time is basic labs. Will administer zosyn. Medical Records Attestation: I reviewed the patient's medical records. Lab Data Attestation: I reviewed the patient's lab results. Result diagrams: 10/17/22 18:26 10/17/22 18:26 Labs: Lab Results 10/17/22 10/17/22 10/17/22 Range/Units 18:26 18:26 18:26 WBC 8.3 (4.8-10.8) X10*3/uL RBC 4.65 (4.20-5.50) X10*6/uL Hgb 14.2 (12.0-16.0) g/dl Hct 40.8 (37.0-47.0) % MCV 87.7 (80.0-98.0) fL MCH 30.5 (27.0-33.0) pg MCHC 34.8 (31.0-35.0) g/dl RDW 11.8 (11.0-16.0) % Plt Count 202 (160-400) X10*3/uL MPV 10.0 (9.4-12.3) fL Immature Gran % (Auto) 0.2 (0.0-0.4) % Neut % (Auto) 64.9 (45-73) % Lymph % (Auto) 22.5 (20-40) % [place] % (Auto) 10.9 (2-11) % Eos % (Auto) 1.1 (0-4) % Baso % (Auto) 0.4 (0-2) % Lymph # (Auto) 1.9 (1.2-4.9) X10*3/uL [place] # (Auto) 0.9 (0.1-1.2) X10*3/uL Eos # (Auto) 0.1 (0.0-0.4) X10*3/uL Baso # (Auto) 0.0 (0.0-0.2) X10*3/uL Abs Immat Gran (auto) 0.02 (0.00-0.03) X10*3/uL Absolute Neuts (auto) 5.4 (2.0-8.3) x10*3/uL Absolute Nucleated RBC 0.000 (0.0-0.012) X10*3/uL Nucleated RBC % (auto) 0.0 (0.0-0.2) /100WBC Sodium 135 (135-145) mmol/L Potassium 3.9 (3.3-5.1) mmol/L Chloride 102 (96-108) mmol/L Carbon Dioxide 27 (22-29) mmol/L Anion Gap 10 L (12-20) BUN 12 (9-16) mg/dL Creatinine 0.82 (0.5-1.4) mg/dL Estim Creat Clear Calc 96.5 Estimated GFR > 60 Random Glucose 87 (60-115) mg/dL Lactic Acid 0.9 (0.5-2.0) mmol/L Calcium 9.5 (8.4-10.2) mg/dL Total Bilirubin 1.1 H (0.0-1.0) mg/dL AST 22 (5-31) U/L ALT 37 H (0-31) U/L Alkaline Phosphatase 53 (39-117) U/L C-Reactive Protein 4.33 H (< or = 0.50) mg/dL Total Protein 7.1 (6.5-8.0) g/dL Albumin 4.6 (3.5-5.0) g/dL COVID-19 ([facility]) (Negative) COVID-19 Clin Com 10/17/22 Range/Units 18:26 WBC (4.8-10.8) X10*3/uL RBC (4.20-5.50) X10*6/uL Hgb (12.0-16.0) g/dl Hct (37.0-47.0) % MCV (80.0-98.0) fL MCH (27.0-33.0) pg MCHC (31.0-35.0) g/dl RDW (11.0-16.0) % Plt Count (160-400) X10*3/uL MPV (9.4-12.3) fL Immature Gran % (Auto) (0.0-0.4) % Neut % (Auto) (45-73) % Lymph % (Auto) (20-40) % [place] % (Auto) (2-11) % Eos % (Auto) (0-4) % Baso % (Auto) (0-2) % Lymph # (Auto) (1.2-4.9) X10*3/uL [place] # (Auto) (0.1-1.2) X10*3/uL Eos # (Auto) (0.0-0.4) X10*3/uL Baso # (Auto) (0.0-0.2) X10*3/uL Abs Immat Gran (auto) (0.00-0.03) X10*3/uL Absolute Neuts (auto) (2.0-8.3) x10*3/uL Absolute Nucleated RBC (0.0-0.012) X10*3/uL Nucleated RBC % (auto) (0.0-0.2) /100WBC Sodium (135-145) mmol/L Potassium (3.3-5.1) mmol/L Chloride (96-108) mmol/L Carbon Dioxide (22-29) mmol/L Anion Gap (12-20) BUN (9-16) mg/dL Creatinine (0.5-1.4) mg/dL Estim Creat Clear Calc Estimated GFR Random Glucose (60-115) mg/dL Lactic Acid (0.5-2.0) mmol/L Calcium (8.4-10.2) mg/dL Total Bilirubin (0.0-1.0) mg/dL AST (5-31) U/L ALT (0-31) U/L Alkaline Phosphatase (39-117) U/L C-Reactive Protein (< or = 0.50) mg/dL Total Protein (6.5-8.0) g/dL Albumin (3.5-5.0) g/dL COVID-19 ([facility]) Negative (Negative) COVID-19 Clin Com See Note Critical Care Time Critical Care Time Critical Care Time: No Discharge Plan Discharge Clinical Impression: Dog bite, Cellulitis Patient Disposition: Home, Self-Care Instructions: Cellulitis (ED), Warm Compress or Soak (ED), Animal Bite (ED) Additional Instructions: Take your medications as prescribed. If you were prescribed antibiotics today, it is important that you take your medication to their entirety, do not skip any doses, do not finish them early. Follow-up with your primary care provider this week. If you note that pain persists or swelling worsens you need to follow-up with orthopedics however for this happens quickly and suddenly please come to the emergency department for further evaluation and treatment Return to the emergency department with new or worsening symptoms. Such as fevers, chills, chest pain, shortness of breath, nausea, vomiting, dizziness, headache, vision changes, lethargy, inability to move fingers, worsening wrist pain or swelling, inability to move wrist, worsening discharge or swelling. Apply warm compresses to the area. In case of emergency call 911 Please continue to take antibiotics as prescribed. Prescriptions: No Action amoxicillin-pot clavulanate 875-125 mg tablet 1 tab PO BID Referrals: [facility] – [place], [place] [facility] [Provider Group] - 1 week Kathi Wadsworth MD [Primary Care Provider] - 2 days Stand Alone Forms: Work/School Release
[2022-10-17 18:50] LABS: Alanine Aminotransferase 37 U/L (0-31); Albumin Level 4.6 g/dL (3.5-5.0); Alkaline Phosphatase 53 U/L (39-117); Anion Gap 10 (12-20); Aspartate Amino Transferase 22 U/L (5-31); Bilirubin Total 1.1 mg/dL (0.0-1.0); Blood Urea Nitrogen 12 mg/dL (9-16); C Reactive Protein 4.33 mg/dL (< or = 0.50); COVID-19 Test Negative (Negative); Calcium 9.5 mg/dL (8.4-10.2); Carbon Dioxide 27 mmol/L (22-29); Chloride 102 mmol/L (96-108); Creatinine Clr Calc Pharmacy 96.5; Estimated Glomerular Filt Rate > 60; Glucose Random 87 mg/dL (60-115); Potassium 3.9 mmol/L (3.3-5.1); Sodium 135 mmol/L (135-145); Total Protein 7.1 g/dL (6.5-8.0)
[2022-10-17 18:54] LABS: Lactic Acid 0.9 mmol/L (0.5-2.0)
[2022-10-17 19:15] LABS: Erythrocyte Sedimentation Rate 5 MM/HR (0-20)
== END 2022-10-17 21:37 | disposition home or self-care (01) ==
PROVIDERS: Physician Assistant; Physician Assistant Medical; Emergency Provider Emergency Medicine Emergency Medical Services; PCP Family Medicine
DX: S61.051A Open bite of right thumb without damage to nail, initial encounter (principal); S61.250A Open bite of right index finger without damage to nail, initial encounter; L03.113 Cellulitis of right upper limb; W54.0XXA Bitten by dog, initial encounter; Y93.9 Activity, unspecified; Y92.9 Unspecified place or not applicable; Y99.9 Unspecified external cause status; Z20.822 Contact with and (suspected) exposure to COVID-19; Z79.899 Other long term (current) drug therapy
CPT/HCPCS: 80053; 83605; 85025; 85652; 86140; 87040; 87635; 96374; 99282; 99284

== ENCOUNTER 2023-09-08 14:55 | Outpatient (REF) | payer OTHER, SELFPAY ==
[2023-09-08 16:33] LABS: Amphetamine Screen Urine Not Detected (Not Detect); Barbiturates, Urine Not Detected (Not Detect); Benzodiazepines Screen Urine Not Detected (Not Detect); Cannabinoid Screen Urine Not Detected (Not Detect); Cocaine Screen Urine Not Detected (Not Detect); Fentanyl, urine Not Detected (Not Detect); Opiate Screen Urine Not Detected (Not Detect); Phencyclidine Screen Urine Not Detected (Not Detect)
[2023-09-08 16:41] LABS: Total Protein Urine Random < 7 mg/dL (<12)
[2023-09-08 16:47] LABS: Hematocrit 39.4 % (37.0-47.0); Hemoglobin 13.4 g/dl (12.0-16.0); Mean Corpuscular Hemoglobin 30.6 pg (27.0-33.0); Mean Platelet Volume 10.9 fL (9.4-12.3); Platelet Count 255 X10*3/uL (160-400); Red Blood Count 4.38 X10*6/uL (4.20-5.50); Red Cell Distribution Width 11.8 % (11.0-16.0); White Blood Count 6.8 X10*3/uL (4.8-10.8)
[2023-09-08 17:09] LABS: Anion Gap 12 (12-20); Aspartate Amino Transferase 15 U/L (5-31); Blood Urea Nitrogen 11 mg/dL (9-16); Calcium 9.6 mg/dL (8.4-10.2); Carbon Dioxide 25 mmol/L (22-29); Chloride 106 mmol/L (96-108); Estimated Glomerular Filt Rate > 60; Glucose Random 69 mg/dL (60-115); Potassium 3.8 mmol/L (3.3-5.1); Sodium 139 mmol/L (135-145)
[2023-09-08 17:24] LABS: Thyroid Stimulating Hormone 2.37 uIU/mL (0.32-4.0)
[2023-09-09 08:28] LABS: Syphilis Screen Nonreactive (Nonreactive)
[2023-09-09 10:19] LABS: HBsAGNum1 0.43 S/CO (0.00-0.99); HIV AB/AG Nonreactive (Nonreactive); HIV Num 1 0.04 S/CO (0.00-0.99); Hepatitis B Surface Antigen Negative (Negative); ~Hepatitis C Antibody Nonreactive (Nonreactive)
[2023-09-09 11:51] LABS: CT PCR NOT DETECTED (Not Detect.); NG PCR NOT DETECTED (Not Detect.)
[2023-09-14 11:09] LABS: Rubella IgG Antibody 1.05 Index
[2023-09-24 15:12] LABS: Cystic Fibrosis NEGATIVE (NEGATIVE)
== END 2023-09-08 14:56 | disposition home or self-care (01) ==
LOC: HO.HMGCLDS 14:55
PROVIDERS: PCP Family Medicine; Visit Provider Family Medicine
DX: O99.210 Obesity complicating pregnancy, unspecified trimester (principal); E66.9 Obesity, unspecified; Z3A.00 Weeks of gestation of pregnancy not specified; Z20.2 Contact with and (suspected) exposure to infections with a predominantly sexual mode of transmission
CPT/HCPCS: 0353U; 80048; 80307; 81220; 82570; 84156; 84443; 84450; 85027; 86762; 86780; 86787; 86803; 86850; 86900; 87340; 87389